=== PATIENT | male | born 1975 | race Caucasian/White ===

== ENCOUNTER → 2024-12-04 07:29 | Outpatient (REF) | payer BC, SELFPAY | LOC: PAVMRI 07:29 | PROVIDERS: FAMILY PHYSICIAN Internal Medicine | DX: D49.0 Neoplasm of unspecified behavior of digestive system (principal) | CPT/HCPCS: 74183; A9575 ==

== ENCOUNTER 2025-03-09 06:25 | Day surgery (SDC) | payer BC, SELFPAY | END 2025-03-09 10:38 | disposition home or self-care (01) | LOC: GI 06:25 | PROVIDERS: ATTENDING PHYSICIAN Internal Medicine | DX: Z12.11 Encounter for screening for malignant neoplasm of colon (principal); K57.30 Diverticulosis of large intestine without perforation or abscess without bleeding; K64.8 Other hemorrhoids; D12.0 Benign neoplasm of cecum | CPT/HCPCS: 45385; 88305 ==